=== PATIENT | male | born 1990 ===

== ENCOUNTER → 2019-05-30 | Outpatient (CLI) | payer BC ==
[2019-05-30 11:06] LABS: Basophils # (auto) 0 uL; Basophils % (auto) 0.5 % (0.0-2.0); Eosinophils # (auto) 0 uL; Eosinophils % (auto) 0.4 % (0.0-7.0); Hematocrit 44.4 % (41.0-53.0); Hemoglobin 14.2 g/dL (13.5-17.5); Lymphocytes # (auto) 2.3 uL; Mean Corpuscular Hemoglobin 18.5 pg (28.0-32.0); Mean Corpuscular Hgb Conc. 32.1 g/dL (32.0-36.0); Mean Corpuscular Volume 57.7 fL (80.0-100.0); Monocytes # (auto) 0.4 uL; Monocytes % (auto) 6.9 % (0.0-12.0); Neutrophils # (auto) 2.9 uL; Neutrophils % (auto) 51.2 % (37.0-80.0); Nucleated Red Blood Cells % 0.1 %; Platelet Count (auto) 180 10^3/uL (140-450); Red Blood Cells 7.69 10^6/uL (4.5-5.90); Red Cell Distribution Width 15.4 % (11.8-14.3); White Blood Cell 5.6 10^3/uL (4.4-10.8)
[2019-05-30 11:31] LABS: Anion Gap 8 (5-15); Blood Urea Nitrogen 12 mg/dL (7-18); Carbon Dioxide 24 mmol/L (21-32); Chloride 107 mmol/L (98-107); Potassium 3.8 mmol/L (3.5-5.1); Sodium 139 mmol/L (136-145)
[2019-05-30 11:38] LABS: Alanine Aminotransferase 78 U/L (16-61); Albumin 4.2 g/dL (3.4-5.0); Alkaline Phosphatase 107 U/L (45-117); Aspartate Aminotransferase 32 U/L (15-37); BUN/Creatinine Ratio 12.1; Bilirubin, Total 0.7 mg/dL (0.2-1.0); Calcium 9.1 mg/dL (8.5-10.1); Cholesterol 199 mg/dL (< 200); GFR African American 115 mL/min; GFR Non-African American 95 mL/min; Glucose 94 mg/dL (74-106); HDL Cholesterol 28 mg/dL (40-59); Total Protein 8.2 g/dL (6.4-8.2); Triglycerides 415 mg/dL (< 150)
[2019-05-30 11:55] LABS: Urine Bacteria NONE SEEN /hpf (None Seen); Urine Blood Negative /uL (Negative); Urine Specific Gravity 1.018 (1.001-1.035); Urine WBC 1 /hpf (0 - 3)
== END | disposition home or self-care (01) ==
LOC: LAB 10:41
PROVIDERS: ATTEND Internal Medicine
DX: E78.1 Pure hyperglyceridemia (principal); M25.50 Pain in unspecified joint
CPT/HCPCS: 36415; 80053; 80061; 81001; 84439; 84443; 84550; 85025; 85652; 86200; 86431

== ENCOUNTER → 2020-01-24 | Outpatient (CLI) | payer BC | END | disposition home or self-care (01) | LOC: LAB 09:20 | PROVIDERS: ATTEND Nurse Practitioner Family | DX: Z03.818 Encounter for observation for suspected exposure to other biological agents ruled out (principal) ==

== ENCOUNTER 2024-01-03 19:57 | Emergency (ER) | payer BC ==
[~2024-01-03] VITALS: Ht 175.3 cm; Wt 92.6 kg
[2024-01-03 20:35] VITALS: BP 125/80; PULSE 109; RESP 19; O2SAT 99
== END 2024-01-03 22:37 | disposition left against medical advice (07) ==
LOC: ER 19:57
DX: R50.9 Fever, unspecified (principal); R05.9 Cough, unspecified; M79.10 Myalgia, unspecified site; Z53.21 Procedure and treatment not carried out due to patient leaving prior to being seen by health care provider

== ENCOUNTER → 2024-01-07 | Outpatient (CLI) | payer BC ==
[2024-01-07 10:22] LABS: Basophils # (auto) 0 10 ^3/uL (0-0.2); Basophils % (auto) 0.3 % (0.0-2.0); Eosinophils # (auto) 0 10 ^3/uL (0-0.8); Monocytes # (auto) 0.5 10 ^3/uL (0-1.3)
[2024-01-07 10:24] LABS: Hematocrit 38.4 % (41.0-53.0); Hemoglobin 12.1 g/dL (13.5-17.5); Lymphocytes # (auto) 2.5 10 ^3/uL (0.4-5.4); Lymphocytes % (auto) 44.5 % (10.0-50.0); Mean Corpuscular Hgb Conc. 31.5 g/dL (32.0-36.0); Mean Corpuscular Volume 57.2 fL (80.0-100.0); Monocytes % (auto) 8.9 % (0.0-12.0); Neutrophils # (auto) 2.6 10 ^3/uL (1.6-8.6); Neutrophils % (auto) 46.3 % (37.0-80.0); Nucleated Red Blood Cells % 0.2 %; Red Blood Cells 6.72 10^6/uL (4.5-5.90); Red Cell Distribution Width 16.3 % (11.8-14.3); White Blood Cell 5.7 10^3/uL (4.4-10.8)
[2024-01-07 11:20] LABS: Alanine Aminotransferase 82 U/L (7-40); Alkaline Phosphatase 146 U/L (46-116); Anion Gap 8 (5-15); Calcium 9.4 mg/dL (8.5-10.1); Carbon Dioxide 26 mmol/L (20-30); Chloride 100 mmol/L (98-107); Potassium 3.9 mmol/L (3.5-5.1); Sodium 134 mmol/L (136-145)
[2024-01-07 11:21] LABS: BUN/Creatinine Ratio 6.1 (10.0-20.0); Blood Urea Nitrogen 6 mg/dL (9-23); Glucose 93 mg/dL (74-106)
[2024-01-07 11:22] LABS: Albumin 4.3 g/dL (3.2-4.8)
[2024-01-07 11:23] LABS: Aspartate Aminotransferase 86 U/L (13-40); Bilirubin, Total 0.6 mg/dL (0.2-1.0); Total Protein 7.2 g/dL (5.7-8.2)
[2024-01-07 11:26] LABS: Anisocytosis Slight; Hypochromia Slight; Platelet Estimate Decreased; Tear Drop Cells FEW
[2024-01-07 11:28] LABS: Erythrocyte Sedimentation Rate 9 mm/hr (0-20)
== END | disposition home or self-care (01) ==
LOC: LAB 10:01
PROVIDERS: ATTEND Internal Medicine
DX: R19.7 Diarrhea, unspecified (principal); R50.9 Fever, unspecified
CPT/HCPCS: 36415; 80053; 85025; 85652; 87045; 87427

== ENCOUNTER → 2024-01-17 | Outpatient (CLI) | payer BC ==
[2024-01-17 07:32] LABS: Basophils # (auto) 0 10 ^3/uL (0-0.2); Eosinophils # (auto) 0.1 10 ^3/uL (0-0.8); Lymphocytes # (auto) 2.7 10 ^3/uL (0.4-5.4)
[2024-01-17 07:33] LABS: Basophils % (auto) 0.4 % (0.0-2.0); Eosinophils % (auto) 0.8 % (0.0-7.0); Hemoglobin 12.3 g/dL (13.5-17.5); Lymphocytes % (auto) 38.1 % (10.0-50.0); Mean Corpuscular Hemoglobin 17.9 pg (28.0-32.0); Mean Corpuscular Hgb Conc. 30.7 g/dL (32.0-36.0); Mean Corpuscular Volume 58.2 fL (80.0-100.0); Monocytes # (auto) 0.6 10 ^3/uL (0-1.3); Monocytes % (auto) 7.8 % (0.0-12.0); Neutrophils # (auto) 3.8 10 ^3/uL (1.6-8.6); Neutrophils % (auto) 52.9 % (37.0-80.0); Nucleated Red Blood Cells % 0.1 %; Red Blood Cells 6.87 10^6/uL (4.5-5.90); Red Cell Distribution Width 16.6 % (11.8-14.3); White Blood Cell 7.1 10^3/uL (4.4-10.8)
[2024-01-17 07:51] LABS: Anisocytosis Slight; Hypochromia Slight; Platelet Estimate Adequate; Tear Drop Cells FEW
[2024-01-17 08:07] LABS: Alanine Aminotransferase 60 U/L (7-40); Albumin 4.3 g/dL (3.2-4.8); Alkaline Phosphatase 112 U/L (46-116); Anion Gap 4 (5-15); Aspartate Aminotransferase 36 U/L (13-40); BUN/Creatinine Ratio 6.5 (10.0-20.0); Blood Urea Nitrogen 6 mg/dL (9-23); Calcium 9.6 mg/dL (8.5-10.1); Carbon Dioxide 27 mmol/L (20-30); Chloride 109 mmol/L (98-107); Glucose 97 mg/dL (74-106); LDL Cholesterol 96 mg/dL (< 100); Potassium 4.4 mmol/L (3.5-5.1); Sodium 140 mmol/L (136-145); Triglycerides 390 mg/dL (< 150)
[2024-01-17 08:08] LABS: Cholesterol 177 mg/dL (< 200); HDL Cholesterol 25 mg/dL (40-59)
[2024-01-17 08:09] LABS: Bilirubin, Total 0.5 mg/dL (0.2-1.0); Total Protein 7.4 g/dL (5.7-8.2)
[2024-01-17 08:46] LABS: Hepatitis B Surface Antibody Negative (Negative)
[2024-01-17 08:57] LABS: Hepatitis B Surface Antigen Negative (Negative)
[2024-01-17 09:18] LABS: Hepatitis A Ab IgM Negative; Hepatitis B Core IgM Negative
[2024-01-17 09:19] LABS: Hepatitis C Antibody Negative (Negative)
== END | disposition home or self-care (01) ==
LOC: LAB 07:06
PROVIDERS: ATTEND Internal Medicine
DX: A08.4 Viral intestinal infection, unspecified (principal)
CPT/HCPCS: 36415; 80053; 80061; 84439; 84443; 85025; 86705; 86706; 86709; 86803; 87177; 87340